=== PATIENT | female | born 1965 | race Caucasian/White ===

== ENCOUNTER 2016-12-01 18:55 | Emergency (ER) | payer MEDICAID ==
[~2016-12-01] VITALS: Ht 170.2 cm; Wt 97.5 kg
[~2016-12-01 18:55] MED LIST: LISI-167 PO
[2016-12-01] MEDS ORDERED: ONDANSETRON 2MG/ML, 2ML IVPush ONE (19:30)
[2016-12-01] MEDS ORDERED: SODIUM CHLORIDE FLUSH 10ML SYR IVF ONE (19:30)
[2016-12-01] MEDS ORDERED: MORPHINE SULFATE 4 MG/ML, 1ML IVPush PRN (19:30)
[2016-12-01] MEDS ORDERED: FAMOTIDINE 20 MG/2 ML IVP ONE (19:30)
[2016-12-01] MEDS ORDERED: SODIUM CHLORIDE 0.9% 1,000ML IVBOLUS ONE (19:30)
[2016-12-01] MEDS ORDERED: FAMOTIDINE 20 MG/2 ML ONE (20:04)
[2016-12-01] MEDS ORDERED: ONDANSETRON 2MG/ML, 2ML ONE (20:04)
[2016-12-01] MEDS ORDERED: MORPHINE SULFATE 4 MG/ML, 1ML ONE (20:04)
[2016-12-01 20:19] LABS: ASPARTATE AMINO TRANSFERASE 20 U/L (15-37); BLOOD UREA NITROGEN 11 mg/dL (7-18)
[2016-12-01] MEDS ORDERED: METH500T97 PO (20:52)
[2016-12-01] MEDS ORDERED: OXYC5CAP4 PO (20:52)
[2016-12-01] MEDS ORDERED: ALPR-475 PO (20:52)
[2016-12-01] MEDS ORDERED: MELO-190 PO (20:53)
[2016-12-01] MEDS ORDERED: ACYC-113 PO (20:53)
[2016-12-01] MEDS ORDERED: SENN8.6T4 PO (20:53)
[2016-12-01] MEDS ORDERED: CYCL-259 PO (20:53)
[2016-12-01] MEDS ORDERED: [UNRECOGNIZED DRUG - CODE] PO (20:55)
[2016-12-01] MEDS ORDERED: METOCLOPRAMIDE 5 MG/ML, 2ML ONE (20:56)
[2016-12-01] MEDS ORDERED: METOCLOPRAMIDE 5 MG/ML, 2ML IVPush ONE (21:00)
[2016-12-01 22:57] VITALS: BP 106/63
== END 2016-12-01 23:02 | disposition home or self-care (01) ==
LOC: ED 22:30
DX: R10.13 Epigastric pain (principal); R11.2 Nausea with vomiting, unspecified; I10 Essential (primary) hypertension; M06.9 Rheumatoid arthritis, unspecified
CPT/HCPCS: 36415; 80053; 81001; 83690; 84703; 85025; 87086; 87147; 96361; 96374; 96375; J2405; J2765; J7030; S0028

== ENCOUNTER 2016-12-05 12:53 | Emergency (ER) | payer MEDICAID ==
[~2016-12-05] VITALS: Ht 165.1 cm; Wt 100.0 kg
[~2016-12-05 12:53] MED LIST changes: +ACYC-113 PO; +ALPR-475 PO; +CYCL-259 PO; +MELO-190 PO; +METH500T97 PO; +OXYC5CAP4 PO; +SENN8.6T4 PO; +[UNRECOGNIZED DRUG - CODE] PO
[2016-12-05] MEDS ORDERED: SODIUM CHLORIDE 0.9% 1,000 ML IV ONE (13:40)
[2016-12-05] MEDS ORDERED: ONDANSETRON 2MG/ML, 2ML ONE (13:53)
[2016-12-05] MEDS ORDERED: MORPHINE SULFATE 4 MG/ML, 1ML ONE (13:53)
[2016-12-05] MEDS ORDERED: PROMETHAZINE 25 MG/ML, 1ML ONE (13:53)
[2016-12-05] MEDS ORDERED: FAMOTIDINE 20 MG/2 ML ONE (13:54)
[2016-12-05] MEDS ORDERED: SODIUM CHLORIDE FLUSH 10ML SYR IVF ONE (14:00)
[2016-12-05] MEDS ORDERED: ONDANSETRON 2MG/ML, 2ML IVPush ONE (14:00)
[2016-12-05] MEDS ORDERED: MORPHINE SULFATE 4 MG/ML, 1ML IVPush PRN (14:00)
[2016-12-05] MEDS ORDERED: SODIUM CHLORIDE 0.9% 1,000ML IVBOLUS ONE (14:00)
[2016-12-05] MEDS ORDERED: PROMETHAZINE 25 MG/ML, 1ML IM ONE (14:00)
[2016-12-05] MEDS ORDERED: FAMOTIDINE 20 MG/2 ML IVP ONE (14:00)
[2016-12-05 14:08] LABS: BLOOD UREA NITROGEN 8 mg/dL (7-18)
[2016-12-05 14:14] LABS: ASPARTATE AMINO TRANSFERASE 21 U/L (15-37)
[2016-12-05] MEDS ORDERED: OMNIPAQUE 350 MG/ML, 100ML BOTTLE ONE (14:53)
[2016-12-05 16:06] VITALS: BP 129/79
== END 2016-12-05 16:16 | disposition home or self-care (01) ==
LOC: ED 16:00
DX: K29.00 Acute gastritis without bleeding (principal); K59.00 Constipation, unspecified; I10 Essential (primary) hypertension; Z90.49 Acquired absence of other specified parts of digestive tract; Z88.0 Allergy status to penicillin; Z88.2 Allergy status to sulfonamides; Z88.3 Allergy status to other anti-infective agents
CPT/HCPCS: 36415; 74177; 80053; 81003; 83605; 83690; 84703; 85025; 86677; 93005; 96361; 96372; 96374; 96375; 99285; J2405; J2550; J7030; Q9967; S0028

== ENCOUNTER 2016-12-06 05:10 | Emergency (ER) | payer MEDICAID ==
[~2016-12-06] VITALS: Ht 165.1 cm; Wt 85.0 kg
[2016-12-06 06:25] LABS: BLOOD UREA NITROGEN 13 mg/dL (7-18)
[2016-12-06 06:29] LABS: ASPARTATE AMINO TRANSFERASE 30 U/L (15-37)
[2016-12-06 07:24] VITALS: BP 135/77
== END 2016-12-06 07:28 | disposition home or self-care (01) ==
LOC: ED 05:23
DX: G89.29 Other chronic pain (principal); R10.84 Generalized abdominal pain; I10 Essential (primary) hypertension; M06.9 Rheumatoid arthritis, unspecified; Z90.49 Acquired absence of other specified parts of digestive tract; Z88.0 Allergy status to penicillin
CPT/HCPCS: 36415; 80053; 83690; 85025; 99284

== ENCOUNTER → 2017-01-16 | Outpatient (CLI) | payer MEDICAID ==
[~2017-01-16] MED LIST changes: -MELO-190 PO; +MELO7.5T31 PO; +OXYC5CAP2 PO; -OXYC5CAP4 PO; +SENN-87 PO; -SENN8.6T4 PO
== END | disposition home or self-care (01) ==
LOC: CFH 08:13
PROVIDERS: ATTEND Neurological Surgery
DX: M43.12 Spondylolisthesis, cervical region (principal); M50.323 Other cervical disc degeneration at C6-C7 level; M96.4 Postsurgical lordosis; M96.1 Postlaminectomy syndrome, not elsewhere classified; M12.88 Other specific arthropathies, not elsewhere classified, other specified site; M47.896 Other spondylosis, lumbar region; M43.16 Spondylolisthesis, lumbar region; I70.0 Atherosclerosis of aorta; M48.06 Spinal stenosis, lumbar region; M25.78 Osteophyte, vertebrae; M48.07 Spinal stenosis, lumbosacral region; M51.06 Intervertebral disc disorders with myelopathy, lumbar region; Z98.890 Other specified postprocedural states
CPT/HCPCS: 72050; 72110; 72131

== ENCOUNTER 2019-06-17 18:57 | Emergency (ER) | payer MEDICAID, MEDICARE ==
[~2019-06-17] VITALS: Ht 167.6 cm; Wt 100.0 kg
[~2019-06-17 18:57] MED LIST changes: -ALPR-475 PO; +ALPR0.5T7 PO; -SENN-87 PO; +SENN-88 PO
[2019-06-17] MEDS ORDERED: BUPIVACAINE/PF-EPI 0.25% 1:200K SQ ONE (19:30)
[2019-06-17] MEDS ORDERED: LIDOCAINE-MPF 1%, 5ML INFIL ONE (19:30)
--- NOTE | 2019-06-17 21:50 | NUR ---
FROM LOBBY TO ROOM AT THIS TIME. UPON ARRIVAL TO ROOM PT VOMITTING IN TRASH CAN. MD AT BEDSIDE FOR ASSESSMENT
[2019-06-17 21:53] VITALS: BP 120/71
[2019-06-17] MEDS ORDERED: ONDANSETRON 2MG/ML, 2ML ONE (22:00)
[2019-06-17] MEDS ORDERED: ONDANSETRON 2MG/ML, 2ML IVPush ONE (22:00)
[2019-06-17] MEDS ORDERED: MORPHINE SULFATE 4 MG/ML, 1ML ONE (22:00)
[2019-06-17] MEDS ORDERED: MORPHINE SULFATE 4 MG/ML, 1ML IVPush PRN (22:00)
--- NOTE | 2019-06-17 22:15 | NUR ---
PT PRESENTING TO ER FOR RIGHT LABIAL BARTHOLAN CYST. PT APPEARING VERY UNCOMFORTABLE. IV PLACED, PT MEDICATED PER JUL. LABS DRAWN. AWAITING RESULTS AND RECHECK. CONNECTED TO MONITORING, VSS AT THIS TIME. CALL LIGHT WITHIN REACH
--- NOTE | 2019-06-17 22:28 | NUR ---
PT UP TO RESTROOM TO OBTAIN URINE SAMPLE
[2019-06-17 22:40] LABS: BASOPHILS # (AUTO) 0.03 x10^3/uL (0-0.1); BASOPHILS % (AUTO) 0 % (0-1); EOSINOPHILS # (AUTO) 0.15 x10^3/uL (0-0.4); EOSINOPHILS % (AUTO) 1 % (1-7); LYMPHOCYTES # (AUTO) 1.62 x10^3/uL (1-3.4); LYMPHOCYTES % (AUTO) 12 % (22-44); MD NO; MEAN CORPUSCULAR HEMOGLOBIN 29.5 pg (27.0-34.8); MEAN CORPUSCULAR HGB CONC 33.3 g/dL (32.4-35.8); MEAN CORPUSCULAR VOLUME 88.7 fL (80-100); MEAN PLATELET VOLUME 8.6 fL (7.4-10.4); MONOCYTES % (AUTO) 7 % (2-9); NEUTROPHILS # (AUTO) 11.09 x10^3/uL (1.8-6.8); NEUTROPHILS % (AUTO) 80 % (42-75); PLATELET COUNT 280 x10^3/uL (130-400); RED BLOOD COUNT 4.65 x10^6/uL (3.82-5.3); RED CELL DISTRIBUTION WIDTH 14.9 % (9.6-15.2)
[2019-06-17 22:42] LABS: ALBUMIN 3.8 g/dL (3.4-5.0); ANION GAP 6 mmol/L (5-15); CALCIUM 9.4 mg/dL (8.5-10.1); CHLORIDE 105 mmol/L (98-107); CREATININE 0.88 mg/dL (0.55-1.02)
[2019-06-17 22:55] LABS: MICROSCOPIC NOT IND
[2019-06-17] MEDS ORDERED: CEPHALEXIN 500 MG CAPSULE PO ONE (23:00)
[2019-06-17 23:01] LABS: CULTURE INDICATED? NO
--- NOTE | 2019-06-17 23:05 | NUR ---
REPORT GIVEN TO BRENDA FUENTES
[2019-06-17] MEDS ORDERED: BUPIVACAINE 0.25% ONE (23:15)
[2019-06-17] MEDS ORDERED: LIDOCAINE-MPF 1%, 5ML ONE (23:15)
== END 2019-06-18 00:33 | disposition home or self-care (01) ==
LOC: ED 23:59
DX: N75.1 Abscess of Bartholin's gland (principal); I10 Essential (primary) hypertension; M06.9 Rheumatoid arthritis, unspecified; Z90.49 Acquired absence of other specified parts of digestive tract
CPT/HCPCS: 36415; 56405; 80048; 81003; 82040; 85025; 96374; 96375; 99284; J2270; J2405

== ENCOUNTER 2019-06-19 07:07 | Emergency (ER) | payer MEDICARE ==
[~2019-06-19] VITALS: Ht 167.6 cm; Wt 99.2 kg
[2019-06-19 07:10] VITALS: BP 130/86
[2019-06-19] MEDS ORDERED: ONDANSETRON ODT 8 MG PO ONE (08:00)
[2019-06-19] MEDS ORDERED: OXYcodone/APAP 5/325MG TABLET PO ONE (08:00)
[2019-06-19] MEDS ORDERED: LIDOCAINE-MPF 1%, 5ML INFIL ONE (08:00)
[2019-06-19] MEDS ORDERED: LIDOCAINE-MPF 1%, 5ML ONE (08:08)
[2019-06-19] MEDS ORDERED: ONDANSETRON ODT 4 MG ONE (08:08)
[2019-06-19] MEDS ORDERED: OXYcodone/APAP 5/325MG TABLET ONE (08:08)
== END 2019-06-19 09:32 | disposition home or self-care (01) ==
LOC: ED 08:33
DX: N76.4 Abscess of vulva (principal); I10 Essential (primary) hypertension; M06.9 Rheumatoid arthritis, unspecified; E66.01 Morbid (severe) obesity due to excess calories; Z90.49 Acquired absence of other specified parts of digestive tract; Z88.0 Allergy status to penicillin; Z88.2 Allergy status to sulfonamides; Z68.35 Body mass index [BMI] 35.0-35.9, adult
CPT/HCPCS: 56405; 99284; Q0162

== ENCOUNTER 2019-06-21 10:39 | Outpatient (CLI) | payer MEDICARE | END 2019-06-21 23:59 | disposition home or self-care (01) | LOC: WOUND 10:39 | PROVIDERS: ATTEND Family Medicine | DX: T81.31XA Disruption of external operation (surgical) wound, not elsewhere classified, initial encounter (principal); I10 Essential (primary) hypertension; E66.01 Morbid (severe) obesity due to excess calories; M06.9 Rheumatoid arthritis, unspecified; Z90.49 Acquired absence of other specified parts of digestive tract; Z88.0 Allergy status to penicillin; Z88.2 Allergy status to sulfonamides; Z22.321 Carrier or suspected carrier of Methicillin susceptible Staphylococcus aureus; Y83.8 Other surgical procedures as the cause of abnormal reaction of the patient, or of later complication, without mention of misadventure at the time of the procedure; Y92.89 Other specified places as the place of occurrence of the external cause | CPT/HCPCS: G0463 ==

== ENCOUNTER 2019-09-06 12:44 | Emergency (ER) | payer MEDICARE, OTHER ==
[~2019-09-06] VITALS: Ht 167.6 cm; Wt 96.4 kg
[~2019-09-06 12:44] MED LIST changes: +BUSP15TA PO; +CIPR500T3 PO; +CYCL5TAB PO; +METR-90 PO; +OMEP-110 PO; +OXYC10TA6 PO; +TRAZ-175 PO; +VENL75CA6 PO
--- NOTE | 2019-09-06 13:12 | NUR ---
TRIAGE NOTE: C-COLLAR AND LEFT ARM SIMPLE SLING PLACED IN TRAIGE
[2019-09-06] MEDS ORDERED: MOVANTIK (14:37)
--- NOTE | 2019-09-06 14:38 | NUR ---
PT AMB WITH CANE TO TRIAGE ROOM. VS RECOLLECTED. MED REC COMPLETE. PIT ORDERS RECEIVED.
--- NOTE | 2019-09-06 15:28 | NUR ---
PT TO ROOM [address] CAME FOR IMAGING.
[2019-09-06] MEDS ORDERED: KETOROLAC 30 MG/1 ML ONE (15:59)
[2019-09-06] MEDS ORDERED: METHOCARBAMOL 750 MG TABLET ONE (15:59)
[2019-09-06] MEDS ORDERED: METHOCARBAMOL 750 MG TABLET PO ONE (16:00)
[2019-09-06] MEDS ORDERED: KETOROLAC 30 MG/1 ML IM ONE (16:00)
--- NOTE | 2019-09-06 16:10 | NUR ---
PT MEDICATED FOR PAIN PER ORDER. PAIN NOW 11/14.
[2019-09-06 17:33] VITALS: BP 121/72
--- NOTE | 2019-09-06 17:35 | NUR ---
BREAK RN: Patient/Caregiver given discharge instructions and they have confirmed that they understand the instructions. Patient ambulatory with steady gait WITH HER CANE
== END 2019-09-06 17:36 | disposition home or self-care (01) ==
LOC: ED 16:16
DX: S32.019A Unspecified fracture of first lumbar vertebra, initial encounter for closed fracture (principal); S16.1XXA Strain of muscle, fascia and tendon at neck level, initial encounter; M51.36 Other intervertebral disc degeneration, lumbar region; I10 Essential (primary) hypertension; E66.01 Morbid (severe) obesity due to excess calories; G89.29 Other chronic pain; Z68.34 Body mass index [BMI] 34.0-34.9, adult; V49.09XA Driver injured in collision with other motor vehicles in nontraffic accident, initial encounter; Y93.89 Activity, other specified; Y92.410 Unspecified street and highway as the place of occurrence of the external cause; Y99.8 Other external cause status
CPT/HCPCS: 72110; 72125; 73030; 96372; 99284; J1885